=== PATIENT | male | born 1975 | race Caucasian/White ===

== ENCOUNTER 2017-08-22 10:29 | Emergency (ER) | payer OTHER ==
--- NOTE | 2017-08-22 11:06 | RAD ---
Indication: Right ankle pain. 2 views of the right ankle demonstrates no fracture. No other bone or joint abnormality is noted. IMPRESSION: No fracture of the right ankle is noted.
--- NOTE | 2017-08-22 11:13 | RAD ---
Indication: Right foot pain. 3 views of the right foot demonstrates no fracture. No other bone or joint abnormality is identified. IMPRESSION: No fracture of the right foot is noted.
[2017-08-22 11:58] VITALS: BP 127/89
--- NOTE | 2017-08-23 07:23 | ED ---
Joanne Vizcarra Alfonso, scribed for Pino Zhou MD on 08/22/17 at 1137 . Lower Extremity - HPI Summary HPI Summary: This patient is a 42 year old M presenting to [facility] accompanied by female with a chief complaint of right foot pain since two weeks ago, when he injured his foot. The patient rates the pain 10/10 in severity. Symptoms aggravated by standing. Symptoms alleviated by nothing. Symptoms treated [employer] with abigail wrap, Excedrin, Tylenol, ibuprofen, and naproxen. PMHx includes anxiety and depression. - History of Current Complaint Chief Complaint: EDExtremityLower Stated Complaint: RT ANKLE/FOOT PAIN Time Seen by Provider: 08/22/17 11:32 Hx Obtained From: Patient Onset of Pain: Post Accident Onset/Duration: Still Present - 2 Severity Currently: Severe Pain Intensity: 10 Pain Scale Used: 0-10 Numeric Timing: Constant Location: Is Discrete @ - right foot Associated Signs And Symptoms: Positive: Negative Aggravating Factor(s): Standing Alleviating Factor(s): Nothing - Allergies/Home Medications Allergies/Adverse Reactions: Allergies Allergy/AdvReac Type Severity Reaction Status Date / Time Gabapentin Allergy Rash Verified 08/22/17 10:36 Penicillins Allergy Rash Verified 08/22/17 10:36 PMH/Surg Hx/FS Hx/Imm Hx Opthamlomology History: Denies: Hx Legally Blind EENT History: Denies: Hx Deafness Psychiatric History: Reports: Hx Anxiety, Hx Depression Infectious Disease History: No Infectious Disease History: Denies: Traveled Outside the [place] in Last 30 Days - Family History Known Family History: Positive: Cardiac Disease, Other - Cancer - Social History Alcohol Use: None Substance Use Type: Reports: None Smoking Status (MU): Heavy Every Day Tobacco Smoker Review of Systems Negative: Fever Positive: Other - right foot pain All Other Systems Reviewed And Are Negative: Yes Physical Exam - Summary Physical Exam Summary: VITAL SIGNS: Reviewed. GENERAL: Patient is a well-developed and nourished male who is lying comfortable in the stretcher. Patient is not in any acute respiratory distress. HEAD AND FACE: No signs of trauma. No ecchymosis, hematomas or skull depressions. No sinus tenderness. EYES: PERRLA, EOMI x 2, No injected conjunctiva, no nystagmus. EARS: Hearing grossly intact. Ear canals and tympanic membranes are within normal limits. MOUTH: Oropharynx within normal limits. NECK: Supple, trachea is midline, no adenopathy, no JVD, no carotid bruit, no c- spine tenderness, neck with full ROM. CHEST: Symmetric, no tenderness at palpation LUNGS: Clear to auscultation bilaterally. No wheezing or crackles. CVS: Regular rate and rhythm, S1 and S2 present, no murmurs or gallops appreciated. ABDOMEN: Soft, non-tender. No signs of distention. No rebound no guarding, and no masses palpated. Bowel sounds are normal. EXTREMITIES: no edema, no cyanosis or clubbing. Decreased ROM of right foot secondary to pain. Good pedal pulses. No deformity. NEURO: Alert and oriented x 3. No acute neurological deficits. Speech is normal and follows commands. SKIN: Dry and warm. No erythema of right foot. Triage Information Reviewed: Yes Vital Signs On Initial Exam: Initial Vitals Temp Pulse Resp BP Pulse Ox 97.8 F 66 16 124/89 100 08/22/17 10:34 08/22/17 10:34 08/22/17 10:34 08/22/17 10:34 08/22/17 10:34 Vital Signs Reviewed: Yes - Silviano Coma Scale Coma Scale Total: 15 Diagnostics - Vital Signs Vital Signs Temp Pulse Resp BP Pulse Ox 08/22/17 10:34 97.8 F 66 16 124/89 100 - Laboratory Lab Statement: Any lab studies that have been ordered have been reviewed, and results considered in the medical decision making process. - Radiology Foot X-Ray Radiology Interpretation Completed By: Radiologist - No fracture of the right foot is noted. ED physician has reviewed this radiology report and agrees. Ankle X-Ray Radiology Interpretation Completed By: Radiologist - No fracture of the right ankle is noted. ED physician has reviewed this radiology report and agrees. Lower Extremity Course/Dx - Course Assessment/Plan: This patient is a 42 year old M presenting to [facility] accompanied by female with a chief complaint of right foot pain since two weeks ago, when he injured his foot. The patient rates the pain 10/10 in severity. Symptoms aggravated by standing. Symptoms alleviated by nothing. Symptoms treated [employer] with abigail wrap, Excedrin, Tylenol, ibuprofen, and naproxen. PMHx includes anxiety and depression. Ankle X-Ray reveals, No fracture of the right ankle is noted. ED physician has reviewed this radiology report and agrees. Foot X-Ray reveals, No fracture of the right foot is noted. ED physician has reviewed this radiology report and agrees. Pt is able to place weight on his ankle; however, it increased the pain when he stands for a long time. Therefore , he was placed in an aircast and was given naproxen for pain, and instructed to elevate at all times. He declined a work note. The patient is hemodynamically stable, alert and oriented x3. - Diagnoses Provider Diagnoses: Right ankle sprain, Right ankle pain Discharge - Discharge Plan Condition: Stable Disposition: HOME Prescriptions: Naproxen TAB* [Naprosyn 250 mg TAB*] 500 mg PO Q8H PRN #20 tab PRN Reason: Pain Patient Education Materials: Ankle Sprain (ED) Referrals: Patricio Schuster MD [Primary Care Provider] - 3 Days Additional Instructions: RETURN TO THE EMERGENCY DEPARTMENT FOR CHANGING OR WORSENING SYMPTOMS. The documentation as recorded by the Joanne fagan Alfonso accurately reflects the service I personally performed and the decisions made by Abelardo berry Walter, MD.
== END 2017-08-22 12:00 | disposition home or self-care (01) ==
LOC: ED 10:29
DX: S93.401A Sprain of unspecified ligament of right ankle, initial encounter (principal); M25.571 Pain in right ankle and joints of right foot; X58.XXXA Exposure to other specified factors, initial encounter; Y93.9 Activity, unspecified; Y92.9 Unspecified place or not applicable
CPT/HCPCS: 99282